=== PATIENT | female | born 2005 | race Asian ===

== ENCOUNTER 2024-07-12 23:04 | Emergency (ER) | payer BC, SELFPAY ==
--- OUTSIDE RECORDS SUMMARY | 2024-07-12 23:07 | XMS_ITS | Clinical Summary ---
Author Organization [employer] [facility] Address [address] [place] [id number] Care Team Providers Care Roll Wrapper Name Role Phone Maksim Lee MD Primary Care Provider [phone] Allergies No known active allergies Medications hyoscyamine sublingual (LEVSIN SL) 0.125 mg sublIndications: Intermittent lower abdominal pain Place 1-2 Tablets (0.125-0.25 mg) under the tongue 4 times daily if needed (abdominal pains). 30 Tablet 01/10/2021 Active naproxen (NAPROSYN) 375 mg tabletIndication s:Dysmenorrhea Take one pill by mouth twice daily 2 days before and during menses. 60 Tablet 2 09/17/2021 Active prochlorperazine (COMPAZINE) 10 mg tabletIndication s:Abdominal pain, unspecified abdominal location Take 1 Tablet (10 mg) by mouth every 6 hours if needed for Nausea/Vomit ing. 10 Tablet 02/26/2024 Active Active Problems Problem Noted Date Diagnosed Date Irritable bowel syndrome wit h both constipation and diarrhea 09/24/2021 Underweight in adolescence 09/24/2021 Headache, frequent episodic tension-type 022 Dysmenorrhea 09/24/2021 Generalized postprandial abdominal pain 09/25/19 22 Postprandial nausea 09/24/2021 Constipation 05/14/2021 Generalized anxiety disorder 05/14/2021 Chronic nausea 05/14/2021 Depression, major, single episode, moderate 04/17 Resolved Problems Problem Noted Date Diagnosed Date Resolved Date Pneumonia, community acquired, LLL 11/12/2015 12/31/2015 Unspecified constipation 08/15/2012 Overview (08/15/2012): Trial of Miralax 08/15/12. Hypertrophy of tonsil with adenoids 03/14/2007 09/15/2007 SNORING 02/28/2007 09/15/2007 Immunizations Name Administration Dates Next Due AMB Influenza, IIV4 PF (=>6 mos Flulaval,Fluzone Fluarix)(Flu Clinic Only) 03/23/2017 BCG Vaccine (Percutaneous) 2004 DTP 2004,2004,2004 DTaP 07/23/2005 DTaP-IPV (Kinrix) 10/01/2009 HIB PRP-OMP (PedvaxHIB) 01/26/2006,07/23/2005 HPV 9 (Gardasil 9) 07/22/2016,02/07/2016, 016 Hepatitis A (Peds) 02/28/2007,01/26/2006 Hepatitis B (Peds) 02/17/2005,2004, 005 Inactivated Polio Vaccine 2004,2004, 2004 Influenza A (H1N1), Inactivated 05/15/2009,04/03 Influenza A (H1N1), Live Intranasal 05/15/2009,1 06/03/2008 Influenza, IIV3 (Age 6-35 mos) 04/14/2006,2004,03/06/2005 Influenza, IIV3 (Age >=3 years) 05/19/19 13,03/12/2008,04/08/2007,04/13,04/07/2005,03/06/2005 Influenza, IIV4 05/14/2021, 0,04/08/2019,04/28,03/15/2015,03/20/2014 Influenza, IIV4 (=>6mos) MDV 06/17/2018 MENINGOCOCCAL VACCINE 2 VIAL 2MO-55YO (MENVEO) 05/14/2021,01/01/2016 MMR 10/01/2009,05/14/2005 Pneumococcal conj 13-Valent (Prevnar 13) 10/01/2009 Pneumococcal conj 7-Valent (Prevnar 7) 6,07/23/2005,05/14/2005 Tdap 01/01/2016 Varicella Vaccine 10/01/2009,05/14/2005 Family History Medical History Relation Name Comments Unknown Father Unknown Mother Relation Name Status Comments Father Mother Social History Tobacco Use Types Packs/Day Years Used Date Smoking Tobacco: Never Smokeless Tobacco: Never Comments:sister smokes Alcohol Use Standard Drinks/Week Comments No 0 (1 standard drink = 0.6 oz pur e alcohol) PHQ-2 Answer Date Recorded PHQ-2 TOTAL SCORE 2 11/04/2022 Financial Resource Strain Answer Date R ecorded Difficulty of Paying Living Expenses Not on file 05/14/2021 Difficulty of Paying Living Expenses Not on file 05/14/2021 Interpersonal Safety Answer Date Record ed Are you being hit, kicked, p ushed or yelled at (see row info)? 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 Gender Identity Not on file Sexual Orientation Not on file Obstetrics History Last Filed Vital Signs Vital Sign Reading Time Taken Comments Blood Pressure 110/62 02/29/2024 2:57 PM CDT Pulse 104 02/29/2024 2:57 PM CDT Temperature 36.6 C (97.8 F) 02/26/2024 3:02 PM CDT Respiratory Rate 20 02/26/2024 7:38 PM CDT Oxygen Saturation 99% 02/26/2024 7:38 PM CDT Inhaled Oxygen Concentration - - Weight 44.1 kg (97 lb 4.8 oz) 02/29/2024 2:57 PM CDT Height 157.5 cm (5' 2) 02/26/2024 3:02 PM CDT Body Mass Index 17.8 02/26/2024 3:02 PM CDT Plan of Treatment Health Maintenance Due Date Last Done Comments HIV for age 15-65 2019 Hepatitis C screening for age 18-79 2022 Well Child Check for age 3-20 05/14/2022 05/14/2021, 01/01/2016, 10/01/2009, Additional history exists BMI (ht and wt on same day) for age 18+ 11/05/2023 11/04/2022 Depression screening for age 12+ 11/07/2023 11/06/2022, 11/04/2022, 01/01/2022, Additional history exists Influenza for age 9-49 01/16/2024 , 03/21/2020, 04/08/2019, Additional history exists Chlamydia for age 16-24 02/23/2025 02/24/2024 Tetanus booster 12/31/2025 01/01/2016 Pneumococcal series for age 6-49 Aged Out 10/01/2009, 01/26/2006, 07/23/2005, Additional history exists No longer eligible based on patient's age to complete this topic Tdap Completed 01/01/2016 HPV series for age 9-26 Completed 07/23/19, 02/07/2016, 01/01/2016 Meningococcal series for age 11-21 Completed 05/14/2021, 01/01/2016 COVID-19 vaccine series Completed 02/16/20 24, 04/15/2022, 06/11/2021, Additional history exists Procedures Procedure Name Priority Date/Time Associated Diagnosis Comments CHLAMYDIA/NEISSERIA GONORRHOEAE RNA, TMA, UROGENITAL ([facility]) Routine 02/24/2024 4:58 PM CDT Possible exposure to STI from Last 3 Months or Most Recently Relevant to Health Maintenance Results * CHLAMYDIA/NEISSERIA GONORRHOEAE RNA, TMA, UROGENITAL ([facility]) (02/24/2024 4:58 PM CDT) CHLAMYDIA TRACHOMATIS RNA, TMA, UROGENITAL NOT DETECTED NOT DETECTED [facility] NEISSERIA GONORRHOEAE RNA, TMA, UROGENITAL NOT DETECTED NOT DETECTED [facility] COMMENT [facility] Comment: The analytical performance characteristics of this assay, when used to test SurePath(TM) specimens have been determined by [employer]. The modifications have not been cleared or approved by the FDA. This assay has been validated pursuant to the CLIA regulations and is used for clinical purposes. For additional information, please refer to https://education.L'Idealist/faq/CCS767 (This link is being provided for information/ educational purposes only.) Other VAGINAL SWAB / Unknown 02/24/2024 4:58 PM CDT 02/24/2024 4:58 PM CDT [employer] DAVE SEND OUTS Final R esult [facility] [address] [place] [address], [employer] [address] [place] [address] from Last 3 Months or Most Recently Relevant to Health Maintenance Insurance [facility] [place] [id number] [facility] Advance Directives * Full Code (Latest Code Status on File) Date Activated Date Inactivated Comments 03/17/2007 7:28 AM 03/17/2007 12:44 PM Care Teams Roll Wrapper Relationship Specialty Start Date End Date Maksim Lee MD [address] [place] [id number] [facility] - General 02/11/05
[2024-07-12 23:13] VITALS: BP 101/67; PULSE 125; RESP 18; TEMP 38.8; O2SAT 98
[2024-07-12] MEDS: IBUPROFEN 200 MG TABLET 600 MG PO (23:13)
[2024-07-12 23:16] VITALS: BP 101/67; PULSE 133; RESP 18; TEMP 38.8; O2SAT 98; BMI 18.3
[2024-07-12 23:34] LABS: Ur HCG Qualitative* Negative (Negative)
[2024-07-13 00:01] LABS: PCR FLU A Negative PCR FLU A (Negative); PCR FLU B Negative PCR FLU B (Negative); PCR RSV Negative PCR RSV (Negative); SARS PCR* Negative SARS-CoV-2 (Negative)
--- NOTE | 2024-07-13 00:14 | ED.GENADULT ---
HPI - General Adult General Date Seen: 07/13/24 Chief complaint: Fever Stated complaint: Fever, body aches, chest pain Time Seen by Provider: 07/13/24 00:09 History of Present Illness HPI narrative: 19 yo generally healthy F presenting to the ER mireya with her boyfriend for evaluation of fever, chills, body aches, fatigue, nausea. She has been sick for about 2 days. She has had fever and chills with body aches and fatigue. Fevers coming going. She did take Tylenol and ibuprofen late this morning or around noon which helped for a few hours but this evening symptoms came back. Fever went higher in addition to that she had more onset of achiness, a little bit of tightness in her chest, generalized weakness, body aches. She is feeling nauseous. No real abdominal pain. She has not vomited yet. No diarrhea. Urination has been normal. No concerning rashes. She had a little itchy spot on her right arm and right side of her neck that is now resolved. She is about 1 week late on her menstrual cycle. No significant cough. No known sick exposures in her dorm. Related Data Previous Rx's ?Medication ?Instructions ?Recorded cefdinir 300 mg capsule 300 mg PO BID 10 days #20 caps 07/13/24 Allergies Allergy/AdvReac Type Severity Reaction Status Date / Time No Known Drug Allergies Allergy Verified 07/12/24 23:18 [facility] Medical History (Updated 07/13/24 @ 01:21 by Karthik Ramirez MD) No significant past medical history Surgical History (Updated 07/12/24 @ 23:22 by Singh Hampton RN) No significant past surgical history Social History Smoking Status: Never smoker Second hand tobacco smoke exposure: No How often do you have a drink containing alcohol: never AUDIT-C Alcohol total score: 0 Non-prescribed substance use: denies use Exam Narrative: Exam Narrative: Constitutional: Appears well-developed and well-nourished. Alert. Conversant. Non toxic. Polite. HENT: Head: Atraumatic. Nose: Nose normal. Mouth/Throat: Oral mucosa is clear and moist. no trismus. Pharynx normal. Tonsils symmetric. No tonsillar enlargement, erythema, or exudate. right ear: Canal, mastoid, TM are normal. Left ear: Canal, mastoid, TM normal. Eyes: Conjunctivae normal. EOM normal. Pupils equal, round, and reactive to light. No scleral icterus. Neck: Normal range of motion. Neck supple. No tracheal deviation present. Cardiovascular: Tachycardic, regular rhythm. No gallop. No friction rub. No murmur heard. Symmetric radial artery pulses Pulmonary/Chest: Effort normal. No stridor. No respiratory distress. No wheezes. No rales. No rhonchi . No tenderness. Abdominal: Soft. Bowel sounds normal. No distension. No mass. No tenderness. No rebound. No guarding. No CVA tenderness. Musculoskeletal: RUE: Normal range of motion. No tenderness. No deformity LUE: Normal range of motion. No tenderness. No deformity RLE: Normal range of motion. No edema. No tenderness. No deformity LLE: Normal range of motion. No edema. No tenderness. No deformity Neurological: Alert and oriented to person, place, and time. Normal strength. CN II-VII intact. No sensory deficit. GCS eye subscore is 4. GCS verbal subscore is 5. GCS motor subscore is 6. Normal coordination Skin: Skin is warm and dry. No rash noted. No pallor. Normal capillary refill. Psychiatric: Normal mood. Normal affect. As I am doing her evaluation, her boyfriend is at her side in the interact positively together. During her evaluation her mother and father arrived. So her boyfriend when out to the lobby and her mother and brother came back. They seem very attentive and concerned. Const: Vital Signs, click to edit/add: Vital Signs - 24 hr 07/12/24 23:13 07/12/24 23:16 07/13/24 00:30 Temperature 102 F H 102 F H Pulse Rate Pulse Rate [Pulse Oximeter] 133 H Pulse Rate [Right Pulse Oximeter] 125 H Respiratory Rate 18 18 Blood Pressure Blood Pressure [Le ft Arm] 101/67 Blood Pressure [Ri ght Upper Arm] 101/67 Pulse Oximetry 98 98 98 Oxygen Delivery Me thod Room Air Room Air 07/13/24 00:54 07/13/24 00:57 07/13/24 01:01 Temperature 99.7 F H 99.7 F H Pulse Rate 99 Pulse Rate [Pulse Oximeter] 105 H Pulse Rate [Right Pulse Oximeter] Respiratory Rate 18 20 Blood Pressure 108/66 Blood Pressure [Le ft Arm] Blood Pressure [Ri ght Upper Arm] 105/65 Pulse Oximetry 98 100 Oxygen Delivery Me thod Room Air 07/13/24 01:31 07/13/24 01:40 Temperature 99.5 F Pulse Rate 96 Pulse Rate [Pulse Oximeter] 99 Pulse Rate [Right Pulse Oximeter] Respiratory Rate 20 20 Blood Pressure 101/68 Blood Pressure [Le ft Arm] Blood Pressure [Ri ght Upper Arm] 105/65 Pulse Oximetry 99 Oxygen Delivery Me thod Course Course ED Course: Recheck-heart rate down to about 100 and temperature down to about in 97.9 after fluids and ibuprofen. Patient says she is feeling much better. Urinalysis abnormal with positive nitrite. Will treat with Rocephin for possible UTI. Reevaluation(s) Reevaluation #1: Recheck-Rocephin complete. Patient remains hemodynamically stable. She is comfortable discharging home with her parents and boyfriend. Vital Signs Vital signs: Initial Vital Signs Temperature 102 F H 07/12/24 23:13 Temperature Source Temporal Artery Scan 07/12/24 23:13 Pulse Rate 125 H 07/12/24 23:13 Respiratory Rate 18 07/12/24 23:13 Respiratory Effort Normal, Spontaneous, Non-Labored 07/12/24 23:13 Respiratory Depth Normal 07/12/24 23:13 Respiratory Pattern Normal 07/12/24 23:13 Blood Pressure 101/67 07/12/24 23:13 Blood Pressure Mean 78 07/12/24 23:13 Blood Pressure Position Sitting 07/12/24 23:13 Pulse Oximetry 98 07/12/24 23:13 Oxygen Delivery Method Room Air 07/12/24 23:13 Sepsis Recent Fever Within 48 Hours Yes 07/12/24 23:13 Sepsis New/Unexplained Change in Mental Status No 07/12/24 23:13 Sepsis Action Taken by Nursing Physician Notified 07/12/24 23:13 Vital Signs Temperature 102 F H 07/12/24 23:13 Pulse Rate 125 H 07/12/24 23:13 Respiratory Rate 18 07/12/24 23:13 Blood Pressure 101/67 07/12/24 23:13 Pulse Oximetry 98 07/12/24 23:13 Oxygen Delivery Method Room Air 07/12/24 23:13 Temperature 99.5 F 07/13/24 01:40 Pulse Rate 99 07/13/24 01:40 Respiratory Rate 20 07/13/24 01:40 Blood Pressure 105/65 07/13/24 01:40 Pulse Oximetry 99 07/13/24 01:31 Oxygen Delivery Method Room Air 07/13/24 00:54 Medications Administered Medications: Discontinued Medications Generic Name Dose Route Start Last Admin Trade Name Ronaldq PRN Reason Stop Dose Admin Sodium Chloride 1,000 mls @ 1,000 mls/hr 07/13/24 00:37 07/13/24 01:30 0.9 % Sodium Chloride 1000 Ml IV 07/13/24 01:36 Infused .Q1H AUGUSTO Infusion Ceftriaxone Sodium 1 gm/ 100 mls @ 200 mls/hr 07/13/24 01:04 07/13/24 01:33 Sodium Chloride IVPB 07/13/24 01:05 Infused ONCE ONE Infusion Ibuprofen 600 mg 07/12/24 23:10 07/12/24 23:13 Ibuprofen 200 Mg Tablet PO 07/12/24 23:11 600 mg ONCE ONE Administration Ondansetron HCl 4 mg 07/13/24 00:57 07/13/24 01:35 Ondansetron 2 Mg/Ml Inj IVP 07/13/24 00:58 Not Given ONCE ONE Medical Decision Making MDM Narrative Medical decision making narrative: Child presents for evaluation of fever along with chills, body aches, and chest tightness. She did have sinus tachycardia and temperature of 102? at presentation.. Differential is broad. No classic rash to suggest viral syndrome. Influenza/coronavirus,/RSV PCR is negative. No evidence for OM on exam. No pharyngitis. Differential for fever included cellulitis, septic arthritis, osteomyelitis but these are not seen on exam. Although she has no cough, with her chest tightness we did obtain a chest x-ray and is negative for any pneumonia. Also no evidence for other noninfectious causes of chest tightness such as pulmonary edema, cardiomegaly, pneumothorax, pleural effusion. Abdominal exam is benign, appendicitis/colitis/ intra-abdominal source for fever is unlikely. The patient is smiling, alert, sitting up, and non-toxic, so I do not think sepsis or meningitis is present. Urinalysis is abnormal with positive nitrite. Also scant hematuria. However no flank pain to suggest kidney stone. Notably it is somewhat contaminated with moderate squames. However with positive nitrate, I am suspicious for probable UTI as a cause for her fever. Prior 1 g Rocephin IV given here in the ER. Urinalysis also positive for ketones which could reflect dehydration. Negative for glucose. White count is normal. Venous lactic acid is reassuring at 1.0. BMP shows normal glucose, normal kidney function. Normal electrolytes. At this point the child is non-toxic, well appearing. This fever is likely due to viral illness. Plan of care includes supportive care with antipyretics, fluids, and watchful waiting at home. Instructions to return for recheck in 2 days if not improved, or immediately if worsening fever, decreasing oral intake, lethargy, weakness, or any other concerns. Lab Data Labs: Lab Results 07/12/24 07/13/24 07/13/24 Range/Units 23:15 00:00 00:45 WBC 9.60 (4.50-11.00) K/uL RBC 3.98 L (4.00-5.20) m/uL Hgb 11.6 L (12.0-16.0) gm/dL Hct 36.4 (33.0-51.0) % MCV 92 (80-100) fL MCH 29 (26-34) pg MCHC 32 (32-36) gm/dL RDW Coeff of Kaylan 13.7 (11.5-15.5) % Plt Count 195 (140-440) K/uL Neut % (Auto) 87.9 H (42.0-72.0) % Lymph % (Auto) 3.5 L (20-44) % [place] % (Auto) 8.3 (0.0-11.0) % Eos % (Auto) 0.0 (0.0-7.0) % Baso % (Auto) 0.3 (0.0-3.0) % Neut # (Auto) 8.40 H (1.7-7.0) K/uL Lymph # (Auto) 0.30 L (0.90-2.90) K/uL [place] # (Auto) 0.80 (0.00-0.90) K/UL Eos # (Auto) 0.00 (0.00-0.50) K/uL Baso # (Auto) 0.03 (0.00-0.30) K/uL Abs Immat Gran (auto) 0.00 (0.00-0.30) K/uL Imm/Tot Granulo (auto) 0.0 % Sodium 135 (135-149) mmol/L Potassium 4.1 (3.6-5.1) mmol/L Chloride 103 (96-114) mmol/L Carbon Dioxide 20 (20-32) mmol/L Anion Gap 12 (7-15) mEq/L BUN 16 (5-24) mg/dL Creatinine 0.7 (0.5-1.5) mg/dL Estimated Creat Clear 91.80 Estimated GFR 127 ml/min Glucose 108 (60-115) mg/dL Lactate 1.0 (0.5-1.9) mmol/L Calcium 9.2 (8.4-10.6) mg/dL Urine Color Yellow (Yellow) Urine Appearance Cloudy A (Clear) Urine pH 6.5 (5.0-8.5) Ur Specific [place] 1.020 (1.000-1.030) Urine Protein 2+ A (Negative) Urine Glucose (UA) Negative (Negative) Urine Ketones 4+ A (Negative) Urine Blood 3+ A (Negative) Urine Nitrite Positive A (Negative) Urine Bilirubin Negative (Negative) Urine Urobilinogen 1.0 (0.2-1.0) Ur Leukocyte Esterase Negative (Negative) Urine RBC 2-5 A (0-2) Urine WBC 2-5 (0-5) Ur Squamous Epith Cells Moderate A (None-Few) Amorphous Sediment Few A (None) Urine Bacteria Many A (None) Urine Mucus Few A (None) Urine HCG, Qual Negative (Negative) SARS-CoV-2 (PCR) Negative SARS-CoV-2 (Negative) Influenza Type A (PCR) Negative PCR FLU A (Negative) Influenza Type B (PCR) Negative PCR FLU B (Negative) RSV (PCR) Negative PCR RSV (Negative) Imaging Data Chest x-ray: Attestation: I have reviewed the pertinent imaging results. My impression: No acute infiltrates. Normal cardiac silhouette. Normal mediastinum. Clear lungs. Radiologist's impression: IMPRESSION: No acute or significant findings. Discharge Plan Discharge Clinical Impression: UTI (urinary tract infection) Patient Disposition: Home w/ Parent or Adult Condition: Stable Instructions: Urinary Tract Infection in Women (DC), Fever in Adults (ED) Additional Instructions: As we discussed, please start on the oral antibiotics for urinary tract infection tomorrow. Knee rest. It is okay to go back to glasses when you are feeling better. However you may need 1-2 days off. Be sure to keep hydrated and drink plenty of fluids. To help treat fever you can use Tylenol or ibuprofen every 6 hours. If you have worsening symptoms such as abdominal pain or flank pain, weakness, uncontrolled nausea vomiting, dehydration, or any problems, please come back to the ER right away to be rechecked Prescriptions: New cefdinir 300 mg capsule 300 mg PO BID 10 Days Qty: 20 0RF Follow Up/Referrals: Provider,Not a Local [Non-Staff] - Stand Alone Forms: Nanali Info Instructions
[2024-07-13 00:30] VITALS: O2SAT 98
[2024-07-13 00:31] LABS: Appearance Urine Cloudy (Clear); Bilirubin Urine Negative (Negative); Blood Urine 3+ (Negative); Color Urine Yellow (Yellow); Glucose Urine Negative (Negative); Ketones Urine 4+ (Negative); Leukocyte Esterase Urine Negative (Negative); Nitrite Urine Positive (Negative); Protein Urine 2+ (Negative); pH Urine 6.5 (5.0-8.5)
[2024-07-13 00:38] LABS: Amorphous Sediment Urine Few; Bacteria Urine Many; Mucus Urine Few; Squamous Epithelial Cell Urine Moderate (None-Few)
[2024-07-13] MEDS: 0.9 % SODIUM CHLORIDE 1000 ml 1,000 ML IV (00:45)
[2024-07-13 00:50] LABS: Basophils Absolute Auto 0.03 K/uL (0.00-0.30); Basophils Percent Auto 0.3 % (0.0-3.0); Hematocrit 36.4 % (33.0-51.0); Hemoglobin* 11.6 gm/dL (12.0-16.0); Lymphocytes Percent Auto 3.5 % (20-44); Mean Corpuscular HGB Conc 32 gm/dL (32-36); Mean Corpuscular Hemoglobin 29 pg (26-34); Mean Corpuscular Volume 92 fL (80-100); Monocytes Percent Auto 8.3 % (0.0-11.0); Neutrophils Percent Auto 87.9 % (42.0-72.0); Platelet Count* 195 K/uL (140-440); RDW Coefficient of Variation % 13.7 % (11.5-15.5); Red Blood Count 3.98 m/uL (4.00-5.20)
[2024-07-13 00:53] LABS: Slide Review Reflex No
[2024-07-13 00:54] VITALS: BP 105/65; PULSE 105; RESP 18; TEMP 37.6; O2SAT 98
--- OUTSIDE RECORDS SUMMARY | 2024-07-13 00:54 | XMS_ITS | Clinical Summary ---
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 The modifications have not been cleared or approved by the FDA. This assay has been validated pursuant to the CLIA regulations and is used for clinical purposes. For additional information, please refer to https://education.Dnevnik/faq/FMM505 (This link is being provided for information/ educational purposes only.) Other VAGINAL SWAB / Unknown 02/24/2024 4:58 PM CDT 02/24/2024 4:58 PM CDT [employer] DAVE SEND OUTS Final R esult [employer] [facility] [address] [place] [address], [facility] [address] [place] [address] from Last 3 Months or Most Recently Relevant to Health Maintenance Insurance [facility] [place] [id number] [facility] Advance Directives * Full Code (Latest Code Status on File) Date Activated Date Inactivated Comments 03/17/2007 7:28 AM 03/17/2007 12:44 PM Care Teams Baseball Inspector Relationship Specialty Start Date End Date Maksim Lee MD [address] [place] [id number] [facility] - General 02/11/05
[2024-07-13 00:57] VITALS: TEMP 37.6
[2024-07-13 01:01] VITALS: BP 108/66; PULSE 99; RESP 20; O2SAT 100
[2024-07-13 01:03] LABS: Chloride* 103 mmol/L (96-114); Sodium* 135 mmol/L (135-149)
[2024-07-13 01:04] LABS: Potassium* 4.1 mmol/L (3.6-5.1)
[2024-07-13 01:06] LABS: Blood Urea Nitrogen* 16 mg/dL (5-24); Creatinine* 0.7 mg/dL (0.5-1.5); Estimated Glomerular Filt Rate 127 ml/min
[2024-07-13 01:07] LABS: Anion Gap 12 mEq/L (7-15); Calcium* 9.2 mg/dL (8.4-10.6); Carbon Dioxide* 20 mmol/L (20-32); Glucose* 108 mg/dL (60-115)
[2024-07-13] MEDS: cefTRIAXone 1 GM in 0.9 % SODIUM CHLORIDE Mini-bag 100 ML IVPB (01:10)
[2024-07-13 01:31] VITALS: BP 101/68; PULSE 96; RESP 20; O2SAT 99
[2024-07-13 01:40] VITALS: BP 105/65; PULSE 99; RESP 20; TEMP 37.5
--- NOTE | 2024-07-17 20:43 | ED.FEVER ---
HPI - Fever General Chief Complaint: Fever Stated Complaint: Fever, body aches, chest pain Time Seen by Provider: 07/13/24 00:09 History of Present Illness HPI Narrative: Addendum to recent ER visit. Urine culture is positive for E coli, pansensitive. Patient is on cefdinir . Would be sensitive. Related Data Previous Rx's ?Medication ?Instructions ?Recorded cefdinir 300 mg capsule 300 mg PO BID 10 days #20 caps 07/13/24 Allergies Allergy/AdvReac Type Severity Reaction Status Date / Time No Known Drug Allergies Allergy Verified 07/12/24 23:18 [facility] Medical History (Updated 07/13/24 @ 01:21 by Karthik Ramirez MD) No significant past medical history Surgical History (Updated 07/12/24 @ 23:22 by Singh Hampton RN) No significant past surgical history Social History Smoking Status: Never smoker Second hand tobacco smoke exposure: No How often do you have a drink containing alcohol: never AUDIT-C Alcohol total score: 0 Non-prescribed substance use: denies use Course Vital Signs Vital signs: Initial Vital Signs Temperature 102 F H 07/12/24 23:13 Temperature Source Temporal Artery Scan 07/12/24 23:13 Pulse Rate 125 H 07/12/24 23:13 Respiratory Rate 18 07/12/24 23:13 Respiratory Effort Normal, Spontaneous, Non-Labored 07/12/24 23:13 Respiratory Depth Normal 07/12/24 23:13 Respiratory Pattern Normal 07/12/24 23:13 Blood Pressure 101/67 07/12/24 23:13 Blood Pressure Mean 78 07/12/24 23:13 Blood Pressure Position Sitting 07/12/24 23:13 Pulse Oximetry 98 07/12/24 23:13 Oxygen Delivery Method Room Air 07/12/24 23:13 Sepsis Recent Fever Within 48 Hours Yes 07/12/24 23:13 Sepsis New/Unexplained Change in Mental Status No 07/12/24 23:13 Sepsis Action Taken by Nursing Physician Notified 07/12/24 23:13 Vital Signs Temperature 102 F H 07/12/24 23:13 Pulse Rate 125 H 07/12/24 23:13 Respiratory Rate 18 07/12/24 23:13 Blood Pressure 101/67 07/12/24 23:13 Pulse Oximetry 98 07/12/24 23:13 Oxygen Delivery Method Room Air 07/12/24 23:13 Temperature 99.5 F 07/13/24 01:40 Pulse Rate 99 07/13/24 01:40 Respiratory Rate 20 07/13/24 01:40 Blood Pressure 105/65 07/13/24 01:40 Pulse Oximetry 99 07/13/24 01:31 Oxygen Delivery Method Room Air 07/13/24 00:54 Medications Administered Medications: Discontinued Medications Generic Name Dose Route Start Last Admin Trade Name Freq PRN Reason Stop Dose Admin Sodium Chloride 1,000 mls @ 1,000 mls/hr 07/13/24 00:37 07/13/24 01:30 0.9 % Sodium Chloride 1000 Ml IV 07/13/24 01:36 Infused .Q1H [place] Infusion Ceftriaxone Sodium 1 gm/ 100 mls @ 200 mls/hr 07/13/24 01:04 07/13/24 01:33 Sodium Chloride IVPB 07/13/24 01:05 Infused ONCE ONE Infusion Ibuprofen 600 mg 07/12/24 23:10 07/12/24 23:13 Ibuprofen 200 Mg Tablet PO 07/12/24 23:11 600 mg ONCE ONE Administration Ondansetron HCl 4 mg 07/13/24 00:57 07/13/24 01:35 Ondansetron 2 Mg/Ml Inj IVP 07/13/24 00:58 Not Given ONCE ONE MDM - Fever Lab Data Labs: Lab Results 07/12/24 07/13/24 07/13/24 Range/Units 23:15 00:00 00:45 WBC 9.60 (4.50-11.00) K/uL RBC 3.98 L (4.00-5.20) m/uL Hgb 11.6 L (12.0-16.0) gm/dL Hct 36.4 (33.0-51.0) % MCV 92 (80-100) fL MCH 29 (26-34) pg MCHC 32 (32-36) gm/dL RDW Coeff of Kaylan 13.7 (11.5-15.5) % Plt Count 195 (140-440) K/uL Neut % (Auto) 87.9 H (42.0-72.0) % Lymph % (Auto) 3.5 L (20-44) % [place] % (Auto) 8.3 (0.0-11.0) % Eos % (Auto) 0.0 (0.0-7.0) % Baso % (Auto) 0.3 (0.0-3.0) % Neut # (Auto) 8.40 H (1.7-7.0) K/uL Lymph # (Auto) 0.30 L (0.90-2.90) K/uL [place] # (Auto) 0.80 (0.00-0.90) K/UL Eos # (Auto) 0.00 (0.00-0.50) K/uL Baso # (Auto) 0.03 (0.00-0.30) K/uL Abs Immat Gran (auto) 0.00 (0.00-0.30) K/uL Imm/Tot Granulo (auto) 0.0 % Sodium 135 (135-149) mmol/L Potassium 4.1 (3.6-5.1) mmol/L Chloride 103 (96-114) mmol/L Carbon Dioxide 20 (20-32) mmol/L Anion Gap 12 (7-15) mEq/L BUN 16 (5-24) mg/dL Creatinine 0.7 (0.5-1.5) mg/dL Estimated Creat Clear 91.80 Estimated GFR 127 ml/min Glucose 108 (60-115) mg/dL Lactate 1.0 (0.5-1.9) mmol/L Calcium 9.2 (8.4-10.6) mg/dL Urine Color Yellow (Yellow) Urine Appearance Cloudy A (Clear) Urine pH 6.5 (5.0-8.5) Ur Specific [place] 1.020 (1.000-1.030) Urine Protein 2+ A (Negative) Urine Glucose (UA) Negative (Negative) Urine Ketones 4+ A (Negative) Urine Blood 3+ A (Negative) Urine Nitrite Positive A (Negative) Urine Bilirubin Negative (Negative) Urine Urobilinogen 1.0 (0.2-1.0) Ur Leukocyte Esterase Negative (Negative) Urine RBC 2-5 A (0-2) Urine WBC 2-5 (0-5) Ur Squamous Epith Cells Moderate A (None-Few) Amorphous Sediment Few A (None) Urine Bacteria Many A (None) Urine Mucus Few A (None) Urine HCG, Qual Negative (Negative) SARS-CoV-2 (PCR) Negative SARS-CoV-2 (Negative) Influenza Type A (PCR) Negative PCR FLU A (Negative) Influenza Type B (PCR) Negative PCR FLU B (Negative) RSV (PCR) Negative PCR RSV (Negative) Discharge Plan Discharge Clinical Impression: UTI (urinary tract infection) Patient Disposition: Home w/ Parent or Adult Condition: Stable Instructions: Urinary Tract Infection in Women (DC), Fever in Adults (ED) Additional Instructions: As we discussed, please start on the oral antibiotics for urinary tract infection tomorrow. Knee rest. It is okay to go back to glasses when you are feeling better. However you may need 1-2 days off. Be sure to keep hydrated and drink plenty of fluids. To help treat fever you can use Tylenol or ibuprofen every 6 hours. If you have worsening symptoms such as abdominal pain or flank pain, weakness, uncontrolled nausea vomiting, dehydration, or any problems, please come back to the ER right away to be rechecked Prescriptions: New cefdinir 300 mg capsule 300 mg PO BID 10 Days Qty: 20 0RF Follow Up/Referrals: Provider,Not a Local [Non-Staff] - Stand Alone Forms: check24 Info Instructions
== END 2024-07-13 01:40 | disposition home or self-care (01) ==
PROVIDERS: Emergency Provider Emergency Medicine; PCP Internal Medicine
DX: N39.0 Urinary tract infection, site not specified (principal); B96.20 Unspecified Escherichia coli [E. coli] as the cause of diseases classified elsewhere
CPT/HCPCS: 36415; 71046; 80048; 81001; 81025; 83605; 85025; 87086; 87631; 94761; 96365; 96375; 99281; 99283; 99284; 99285; A9270; J0696; J7030